=== PATIENT | female | born 1995 | race Caucasian/White ===

== ENCOUNTER 2021-06-06 10:50 | Emergency (ER) | payer OTHER ==
[~2021-06-06] VITALS: Ht 167.6 cm; Wt 65.3 kg
[2021-06-06] MEDS ORDERED: LASIX40 MG PO (11:14)
== END 2021-06-06 13:47 | disposition home or self-care (01) ==
LOC: ER 10:50
DX: M94.0 Chondrocostal junction syndrome [Tietze] (principal)